=== PATIENT | male | born 1990 | race Caucasian/White ===

== ENCOUNTER 2018-03-23 12:44 | Inpatient (IN) | payer OTHER ==
[2018-03-23] MEDS: VANCOMYCIN PER PHARMACY MC ×2 (13:15→20:43)
[2018-03-23] MEDS: IV NORMAL SALINE 1000ML BAG 1,000 ML IV ×2 (13:15→14:47)
[2018-03-23] MEDS: PIPERACILLIN/TAZOBACTAM 3.375 GM in IV NORMAL SALINE 50ML 50 ML IV ×3 (13:15→23:28)
[2018-03-23 13:53] LABS: ADD MAN DIFF? NO
[2018-03-23 13:59] LABS: BASO % 0 % (0-3); EOS % 0 % (0-3); HEMATOCRIT 32.7 % (39.0-53.0); HEMOGLOBIN 11.3 g/dL (13.0-17.5); LYMPH # 1.7 x10^3/uL (1.0-4.8); LYMPH % 15 % (24-48); MEAN CORPUSCULAR HEMOGLOBIN 31 pg (25-35); MEAN CORPUSCULAR HGB CONC 35 g/dL (31-37); MEAN CORPUSCULAR VOLUME 89 fL (79-100); MONO # 0.9 x10^3/uL (0.0-1.1); MONO % 8 % (0-9); NEUT # 8.5 x10^3uL (1.8-7.7); NEUT % 76 % (31-73); PLATELET COUNT 502 x10^3/uL (140-400); RED BLOOD COUNT 3.69 x10^6/uL (4.30-5.70); WHITE BLOOD COUNT 11.2 x10^3/uL (4.0-11.0)
[2018-03-23 14:10] LABS: INR 1.2 (0.8-1.1); PARTIAL THROMBOPLASTIN TIME 42 SEC (24-38); PROTHROMBIN TIME PATIENT 14.8 SEC (11.7-14.0)
[2018-03-23 14:23] LABS: ANION GAP 8 (6-14); BLOOD UREA NITROGEN 9 mg/dL (8-26); BUN/CREATININE RATIO 11 (6-20); CARBON DIOXIDE 26 mmol/L (21-32); CHLORIDE 102 mmol/L (98-107); CREATININE 0.8 mg/dL (0.7-1.3); GLUCOSE 104 mg/dL (70-99); POTASSIUM 3.5 mmol/L (3.5-5.1); SODIUM 136 mmol/L (136-145)
[2018-03-23 14:29] LABS: ALBUMIN 2.4 g/dL (3.4-5.0); ALBUMIN/GLOBULIN RATIO 0.4 (1.0-1.7); ALK PHOS 88 U/L (46-116); ALT (SGPT) 27 U/L (16-63); AST (SGOT) 17 U/L (15-37); TOTAL BILIRUBIN 0.3 mg/dL (0.2-1.0); TOTAL PROTEIN 8.4 g/dL (6.4-8.2)
[2018-03-23 14:31] LABS: LACTIC ACID 1.2 mmol/L (0.4-2.0)
[2018-03-23 14:32] LABS: TROPONINI < 0.017 ng/mL (0.000-0.055)
[2018-03-23] MEDS ORDERED: ONDANSETRON PF 4 MG/2 ML VIAL. IV (15:00)
[2018-03-23] MEDS: VANCOMYCIN 2 GM in IV 1/2 NORMAL SALINE 500 ML IV (15:00)
[2018-03-23 17:58] LABS: LACTIC ACID 1.1 mmol/L (0.4-2.0)
[2018-03-23] MEDS: LACTOBACILLUS RHAMNOSUS GG 1 CAPSULE. PO (21:08)
[2018-03-23] MEDS: ACETAMINOPHEN 325 MG TABLET. PO (21:08)
[2018-03-24] MEDS: VANCOMYCIN 1.75 GM in IV 1/2 NORMAL SALINE 500 ML IV ×3 (00:16→15:32)
[2018-03-24] MEDS: IV NORMAL SALINE 1000ML BAG 1,000 ML IV ×2 (00:16→06:00)
[2018-03-24] MEDS: PIPERACILLIN/TAZOBACTAM 3.375 GM in IV NORMAL SALINE 50ML 50 ML IV ×4 (06:00→23:11)
[2018-03-24] MEDS: LACTOBACILLUS RHAMNOSUS GG 1 CAPSULE. PO ×2 (08:51→19:49)
[2018-03-24] MEDS ORDERED: LIDOCAINE WITH 8.4% SOD BICARB 3 ML DISP.SYRIN. (11:47)
[2018-03-24] MEDS ORDERED: fentaNYL PF VIAL 100 MCG/2 ML VIAL (11:54)
[2018-03-24] MEDS ORDERED: MIDAZOLAM HCL/PF 2 MG/2 ML VIAL. (11:54)
[2018-03-24] MEDS: MIDAZOLAM HCL/PF 2 MG/2 ML VIAL. IV (12:15)
[2018-03-24] MEDS: LIDOCAINE WITH 8.4% SOD BICARB 3 ML DISP.SYRIN. IJ (12:15)
[2018-03-24] MEDS: fentaNYL PF VIAL 100 MCG/2 ML VIAL IV (12:15)
[2018-03-24 14:19] LABS: PH,BODY FLUID 6.17
[2018-03-24] MEDS: MORPHINE SULFATE 2 MG/ML DISP.SYRIN. IV (14:36)
[2018-03-24] MEDS: HYDROcodone/APAP 5/325MG 1 TAB TABLET PO ×2 (15:33→19:49)
[2018-03-24] MEDS: VANCOMYCIN PER PHARMACY MC (16:36)
[2018-03-25] MEDS: VANCOMYCIN 1.5 GM in IV DEXTROSE 5% 500 ML IV ×3 (00:23→16:34)
[2018-03-25] MEDS: PIPERACILLIN/TAZOBACTAM 3.375 GM in IV NORMAL SALINE 50ML 50 ML IV ×4 (05:24→23:52)
[2018-03-25] MEDS: HYDROcodone/APAP 5/325MG 1 TAB TABLET PO ×5 (05:28→21:35)
[2018-03-25 08:07] LABS: ADD MAN DIFF? NO
[2018-03-25] MEDS: LACTOBACILLUS RHAMNOSUS GG 1 CAPSULE. PO ×2 (08:24→20:47)
[2018-03-25 08:32] LABS: ANION GAP 10 (6-14); BLOOD UREA NITROGEN 5 mg/dL (8-26); CALCIUM 9.1 mg/dL (8.5-10.1); CARBON DIOXIDE 26 mmol/L (21-32); CHLORIDE 104 mmol/L (98-107); CREATININE 0.8 mg/dL (0.7-1.3); GLUCOSE 95 mg/dL (70-99); POTASSIUM 3.8 mmol/L (3.5-5.1); SODIUM 140 mmol/L (136-145)
[2018-03-25 08:36] LABS: BASO % 1 % (0-3); EOS # 0.1 x10^3/uL (0.0-0.7); EOS % 1 % (0-3); HEMATOCRIT 31.5 % (39.0-53.0); HEMOGLOBIN 10.9 g/dL (13.0-17.5); LYMPH # 1.2 x10^3/uL (1.0-4.8); LYMPH % 18 % (24-48); MEAN CORPUSCULAR HEMOGLOBIN 31 pg (25-35); MEAN CORPUSCULAR HGB CONC 35 g/dL (31-37); MEAN CORPUSCULAR VOLUME 89 fL (79-100); MONO # 0.7 x10^3/uL (0.0-1.1); MONO % 10 % (0-9); NEUT # 4.8 x10^3uL (1.8-7.7); NEUT % 71 % (31-73); PLATELET COUNT 482 x10^3/uL (140-400); RED BLOOD COUNT 3.55 x10^6/uL (4.30-5.70); WHITE BLOOD COUNT 6.8 x10^3/uL (4.0-11.0)
[2018-03-25] MEDS: GADOBUTROL 7.5 MMOL/7.5 ML VIAL IV ×2 (10:27)
[2018-03-25] MEDS: VANCOMYCIN PER PHARMACY MC (15:04)
[2018-03-25 23:35] LABS: VANC TR 21.9 mcg/mL (10.0-20.0)
[2018-03-26] MEDS: VANCOMYCIN 1.5 GM in IV DEXTROSE 5% 500 ML IV (00:53)
[2018-03-26] MEDS: VANCOMYCIN PER PHARMACY MC ×2 (01:49→14:16)
[2018-03-26] MEDS: PIPERACILLIN/TAZOBACTAM 3.375 GM in IV NORMAL SALINE 50ML 50 ML IV ×4 (05:30→23:35)
[2018-03-26] MEDS: HYDROcodone/APAP 5/325MG 1 TAB TABLET PO ×4 (07:35→21:08)
[2018-03-26] MEDS: LACTOBACILLUS RHAMNOSUS GG 1 CAPSULE. PO ×2 (08:08→21:08)
[2018-03-26] MEDS: VANCOMYCIN 1.25 GM in IV NORMAL SALINE 250ML 250 ML IV ×2 (08:11→15:56)
[2018-03-26] MEDS: ALTEPLASE 2MG VIAL 10 MG in IV NORMAL SALINE 50ML 50 ML INT CAT (10:06)
[2018-03-26 15:31] LABS: BODY FLUID LDH 748000 IU/L (.)
[2018-03-26 15:31] LABS: BODY FLUID GLUCOSE <2 mg/dL (.)
[2018-03-27] MEDS: VANCOMYCIN 1.25 GM in IV NORMAL SALINE 250ML 250 ML IV ×2 (00:10→08:00)
[2018-03-27] MEDS: PIPERACILLIN/TAZOBACTAM 3.375 GM in IV NORMAL SALINE 50ML 50 ML IV ×3 (06:08→17:48)
[2018-03-27 07:47] LABS: ADD MAN DIFF? NO
[2018-03-27 07:55] LABS: BASO % 1 % (0-3); EOS % 1 % (0-3); HEMOGLOBIN 11.4 g/dL (13.0-17.5); LYMPH # 1.4 x10^3/uL (1.0-4.8); LYMPH % 17 % (24-48); MEAN CORPUSCULAR HEMOGLOBIN 30 pg (25-35); MEAN CORPUSCULAR HGB CONC 35 g/dL (31-37); MEAN CORPUSCULAR VOLUME 88 fL (79-100); MONO # 0.8 x10^3/uL (0.0-1.1); MONO % 11 % (0-9); NEUT # 5.8 x10^3uL (1.8-7.7); NEUT % 71 % (31-73); PLATELET COUNT 571 x10^3/uL (140-400); RED BLOOD COUNT 3.76 x10^6/uL (4.30-5.70); RED CELL DISTRIBUTION WIDTH 12.7 % (11.5-14.5); WHITE BLOOD COUNT 8.1 x10^3/uL (4.0-11.0)
[2018-03-27 07:56] LABS: ANION GAP 10 (6-14); BLOOD UREA NITROGEN 6 mg/dL (8-26); CALCIUM 9.2 mg/dL (8.5-10.1); CARBON DIOXIDE 28 mmol/L (21-32); CHLORIDE 102 mmol/L (98-107); CREATININE 1.2 mg/dL (0.7-1.3); GFR 72.6; GLUCOSE 101 mg/dL (70-99); POTASSIUM 4.1 mmol/L (3.5-5.1); SODIUM 140 mmol/L (136-145)
[2018-03-27 08:02] LABS: VANC TR 21.4 mcg/mL (10.0-20.0)
[2018-03-27] MEDS: LACTOBACILLUS RHAMNOSUS GG 1 CAPSULE. PO ×2 (08:16→21:38)
[2018-03-27] MEDS: HYDROcodone/APAP 5/325MG 1 TAB TABLET PO ×4 (08:22→21:39)
[2018-03-27] MEDS: IV NORMAL SALINE 1000ML BAG 1,000 ML IV (08:23)
[2018-03-27] MEDS: VANCOMYCIN PER PHARMACY MC ×2 (09:00→11:32)
[2018-03-27] MEDS: VANCOMYCIN 1.5 GM in IV 1/2 NORMAL SALINE 500 ML IV (10:46)
[2018-03-27] MEDS: ALTEPLASE 2MG VIAL 10 MG in IV NORMAL SALINE 50ML 50 ML INT CAT (11:30)
[2018-03-28] MEDS: PIPERACILLIN/TAZOBACTAM 3.375 GM in IV NORMAL SALINE 50ML 50 ML IV ×5 (00:33→23:59)
[2018-03-28 06:46] LABS: ANION GAP 9 (6-14); BLOOD UREA NITROGEN 6 mg/dL (8-26); CALCIUM 9.3 mg/dL (8.5-10.1); CARBON DIOXIDE 27 mmol/L (21-32); CHLORIDE 103 mmol/L (98-107); CREATININE 1.2 mg/dL (0.7-1.3); GFR 72.6; GLUCOSE 103 mg/dL (70-99); POTASSIUM 3.9 mmol/L (3.5-5.1); SODIUM 139 mmol/L (136-145)
[2018-03-28] MEDS: LACTOBACILLUS RHAMNOSUS GG 1 CAPSULE. PO ×2 (08:13→20:03)
[2018-03-28] MEDS: HYDROcodone/APAP 5/325MG 1 TAB TABLET PO ×5 (08:13→22:00)
[2018-03-28 23:07] LABS: VANC TR 3.4 mcg/mL (10.0-20.0)
[2018-03-29] MEDS: PIPERACILLIN/TAZOBACTAM 3.375 GM in IV NORMAL SALINE 50ML 50 ML IV ×3 (05:14→17:39)
[2018-03-29 05:30] LABS: ANION GAP 11 (6-14); BLOOD UREA NITROGEN 7 mg/dL (8-26); CALCIUM 8.8 mg/dL (8.5-10.1); CARBON DIOXIDE 27 mmol/L (21-32); CHLORIDE 101 mmol/L (98-107); CREATININE 1.2 mg/dL (0.7-1.3); GFR 72.6; GLUCOSE 90 mg/dL (70-99); POTASSIUM 4.1 mmol/L (3.5-5.1); SODIUM 139 mmol/L (136-145)
[2018-03-29] MEDS: HYDROcodone/APAP 5/325MG 1 TAB TABLET PO ×2 (10:29→17:41)
[2018-03-29] MEDS: LACTOBACILLUS RHAMNOSUS GG 1 CAPSULE. PO ×2 (10:29→21:12)
[2018-03-30] MEDS: PIPERACILLIN/TAZOBACTAM 3.375 GM in IV NORMAL SALINE 50ML 50 ML IV ×3 (00:06→12:26)
[2018-03-30] MEDS: HYDROcodone/APAP 5/325MG 1 TAB TABLET PO (06:02)
[2018-03-30 06:44] LABS: ANION GAP 9 (6-14); BLOOD UREA NITROGEN 8 mg/dL (8-26); CALCIUM 9.3 mg/dL (8.5-10.1); CARBON DIOXIDE 28 mmol/L (21-32); CHLORIDE 101 mmol/L (98-107); CREATININE 1.2 mg/dL (0.7-1.3); GFR 72.6; GLUCOSE 94 mg/dL (70-99); POTASSIUM 3.9 mmol/L (3.5-5.1); SODIUM 138 mmol/L (136-145)
[2018-03-30] MEDS: LACTOBACILLUS RHAMNOSUS GG 1 CAPSULE. PO (10:34)
== END 2018-03-30 13:00 | disposition home or self-care (01) | DRG 539 ==
LOC: 6 SOUTH 03-28 16:00 → ER 12:44 → 4 NORTH 14:50
PROC: 3E0L3GC Introduction of Other Therapeutic Substance into Pleural Cavity, Percutaneous Approach (ICD-10-PCS; principal; 2018-03-23)
PROC: 0W9B30Z Drainage of Left Pleural Cavity with Drainage Device, Percutaneous Approach (ICD-10-PCS; 2018-03-25)
PROC: 02HV33Z Insertion of Infusion Device into Superior Vena Cava, Percutaneous Approach (ICD-10-PCS; 2018-03-26)
DX: M46.20 Osteomyelitis of vertebra, site unspecified (principal); J85.2 Abscess of lung without pneumonia; N17.9 Acute kidney failure, unspecified; M46.40 Discitis, unspecified, site unspecified; I10 Essential (primary) hypertension; M46.90 Unspecified inflammatory spondylopathy, site unspecified; B95.61 Methicillin susceptible Staphylococcus aureus infection as the cause of diseases classified elsewhere; Z82.49 Family history of ischemic heart disease and other diseases of the circulatory system; Z83.3 Family history of diabetes mellitus
CPT/HCPCS: 32557; 36415; 36569; 71045; 71250; 72157; 80048; 80053; 80202; 82945; 83605; 83615; 83986; 84157; 84484; 85025; 85610; 85730; 87040; 87071; 87075; 87186; 88112; 96365; 96366; 96367; 96368; 99152; 99153; 99285; 99285-25; A4215; A9585; C1729; C1892; J1956; J2250; J2270; J2543; J2997; J3010; J3370; J7030; J7050

== ENCOUNTER → 2018-03-23 | Outpatient (CLI) | payer OTHER ==
[~2018-03-23] MED LIST: MIDAZOLAM HCL/PF 2 MG/2 ML VIAL.
[2018-03-23] MEDS: IOHEXOL 300 MG/ML 100ML VIAL. IV (11:54)
== END | disposition home or self-care (01) ==
LOC: CT 11:27
DX: R59.1 Generalized enlarged lymph nodes (principal); I10 Essential (primary) hypertension
CPT/HCPCS: 71275; J2250; Q9967

== ENCOUNTER → 2018-04-24 | Outpatient (CLI) | payer OTHER ==
[2018-04-23 15:10] VITALS: BP 169/91
[~2018-04-24] MED LIST changes: +HYDR-2758 PO; -MIDAZOLAM HCL/PF 2 MG/2 ML VIAL.; +cefTRIAXone SODIUM 2 GM in IV DEXTROSE 5% 100ML 100 ML IV SCH
--- NOTE | 2018-04-24 15:26 | RAD ---
Examination: CT chest without contrast HISTORY: History of empyema COMPARISON: 04/03/2018 technique: Axial CT images of the chest were performed without contrast. Coronal and sagittal reformats are performed Exposure: One or more of the following individualized dose reduction techniques were utilized for this examination: 1. Automated exposure control 2. Adjustment of the mA and/or kV according to patient size 3. Use of iterative reconstruction technique FINDINGS: Right-sided PICC line is identified the tip projecting in the distal SVC. The heart size grossly appears unremarkable The caliber of the aorta grossly appears unremarkable There is a loculated pleural effusion or empyema identified in the left lung measuring 10.92 cm in CC dimension, 6.5 cm in transverse dimension and 4.6 cm in AP dimension. The previously visualized pleural drain has been removed. The anterior paraspinal component at T8-T9 level appears slightly less prominent compared to prior exam. Irregularity of the inferior endplate of T9 vertebral body is again identified. Examination limited due to lack of IV contrast. Mild left lung base airspace opacities likely atelectasis or infiltrate. There is a 8 mm nodule identified in the left lower lobe of the lung is similar to prior exam. The visualized noncontrasted liver, spleen, adrenals grossly appears unremarkable IMPRESSION: 1. Loculated pleural effusion or empyema in the left lung identified as described above. The anterior paraspinal component of the fluid collection appears slightly less prominent. Irregularity of the inferior endplate of T9 vertebral body again noted. Electronically signed by: Jr Lackey MD (04/24/2018 3:23 PM) [id number]
== END | disposition home or self-care (01) ==
LOC: CT 15:39
PROVIDERS: ATTEND Internal Medicine Critical Care Medicine
DX: J43.9 Emphysema, unspecified (principal); R91.1 Solitary pulmonary nodule; I10 Essential (primary) hypertension
CPT/HCPCS: 71250

== ENCOUNTER → 2018-05-08 | Outpatient (CLI) | payer OTHER ==
[2018-05-08] VITALS (10 sets, daily range): BP systolic 105–144; BP diastolic 68–93
[~2018-05-08] VITALS: Ht 180.3 cm; Wt 120.7 kg
[~2018-05-08] MED LIST changes: +LIDOCAINE WITH 8.4% SOD BICARB 3 ML DISP.SYRIN. ONE; +MIDAZOLAM HCL/PF 2 MG/2 ML VIAL. ONE; +fentaNYL PF VIAL 100 MCG/2 ML VIAL ONE
[2018-05-08 07:32] LABS: BASO % 1 % (0-3); EOS # 0.2 x10^3/uL (0.0-0.7); EOS % 3 % (0-3); HEMATOCRIT 39.1 % (39.0-53.0); HEMOGLOBIN 13.5 g/dL (13.0-17.5); LYMPH # 2.4 x10^3/uL (1.0-4.8); LYMPH % 40 % (24-48); MEAN CORPUSCULAR HEMOGLOBIN 30 pg (25-35); MEAN CORPUSCULAR HGB CONC 35 g/dL (31-37); MEAN CORPUSCULAR VOLUME 86 fL (79-100); MONO # 0.5 x10^3/uL (0.0-1.1); MONO % 8 % (0-9); NEUT # 2.9 x10^3uL (1.8-7.7); NEUT % 48 % (31-73); PLATELET COUNT 297 x10^3/uL (140-400); RED BLOOD COUNT 4.55 x10^6/uL (4.30-5.70); RED CELL DISTRIBUTION WIDTH 15.2 % (11.5-14.5); WHITE BLOOD COUNT 5.9 x10^3/uL (4.0-11.0)
[2018-05-08 07:47] LABS: PROTHROMBIN TIME PATIENT 12.4 SEC (11.7-14.0)
[2018-05-08] MEDS: MIDAZOLAM HCL/PF 2 MG/2 ML VIAL. IV ONE (09:40)
[2018-05-08] MEDS: fentaNYL PF VIAL 100 MCG/2 ML VIAL IV ONE (09:40)
[2018-05-08] MEDS: LIDOCAINE WITH 8.4% SOD BICARB 3 ML DISP.SYRIN. IJ ONE (09:40)
--- NOTE | 2018-05-08 13:43 | RAD ---
CT-guided aspiration, left loculated pleural fluid collection. 05/08/2018 Indication: History of empyema. Residual loculated left pleural fluid collection. Control Room Operator requests aspiration with culture and Gram stain. Discussion: The risks and benefits of the procedure were discussed the patient. Informed consent was obtained. The patient was placed in the CT scanner in the prone position. A timeout procedure was performed. Left posterior thorax was prepped and draped using sterile barrier technique. CT imaging was obtained redemonstrating left posterior lateral loculated ovoid fluid collection. This was targeted for aspiration. 1% lidocaine was administered for local anesthesia. Under intermittent CT guidance a 5 [place] Yueh needle was advanced into this collection. Approximately 100 cc of turbid aspirate was obtained. Samples were sent for Gram stain and culture per ordering physician request. The sheath was removed. No immediate complications were identified. The patient tolerated the procedure well. Impression: CT-guided aspiration, left pleural fluid collection PQRS Compliance Statement: One or more of the following individualized dose reduction techniques were utilized for this examination: 1. Automated exposure control 2. Adjustment of the mA and/or kV according to patient size 3. Use of iterative reconstruction technique
--- NOTE | 2018-05-08 13:56 | RAD ---
Single view of the chest. 05/08/2018 10:46 AM Indication: POST LT SIDE THORACENTESIS Comparison: Chest radiograph March 29, 2018 CT chest April 24, 2018 Findings: No pneumothorax is identified. Left-sided volume loss and pleural thickening is again seen. Left lateral pleural thickening is improved following aspiration of pleural fluid collection. Right upper extremity PICC line is stable. Heart size is normal. No acute osseous changes are noted in the interim. IMPRESSION: Decreased left pleural thickening following aspiration of left pleural fluid collection. No pneumothorax or other complication is identified. Electronically signed by: James Toscano MD (05/08/2018 1:52 PM) [facility] [id number]
[2018-05-09] MEDS: cefTRIAXone IV Push 2 GM VIAL. IVP ONE (07:33)
[2018-05-09 07:36] VITALS: BP 112/93
[2018-05-10 07:36] VITALS: BP 135/81
[2018-05-10] MEDS: cefTRIAXone IV Push 2 GM VIAL. IVP ONE (07:36)
== END | disposition home or self-care (01) ==
LOC: INTRAD 06:33
PROVIDERS: ATTEND Internal Medicine Critical Care Medicine
DX: J90 Pleural effusion, not elsewhere classified (principal); J43.9 Emphysema, unspecified; Z90.49 Acquired absence of other specified parts of digestive tract; Z98.890 Other specified postprocedural states; Z79.899 Other long term (current) drug therapy; I10 Essential (primary) hypertension; Z83.3 Family history of diabetes mellitus; Z82.49 Family history of ischemic heart disease and other diseases of the circulatory system; Z86.14 Personal history of Methicillin resistant Staphylococcus aureus infection
CPT/HCPCS: 32555; 36415; 71045; 83986; 85025; 85610; 87071; 87075; 99152; C1892; J2250; J3010; 82945; 83615; 84157; J0696

== ENCOUNTER → 2018-07-07 | Outpatient (CLI) | payer OTHER ==
[2018-05-19 14:19] VITALS: BP 142/82
[~2018-07-07] MED LIST changes: -LIDOCAINE WITH 8.4% SOD BICARB 3 ML DISP.SYRIN. ONE; -MIDAZOLAM HCL/PF 2 MG/2 ML VIAL. ONE; -cefTRIAXone SODIUM 2 GM in IV DEXTROSE 5% 100ML 100 ML IV SCH; -fentaNYL PF VIAL 100 MCG/2 ML VIAL ONE
--- NOTE | 2018-07-07 13:26 | RAD ---
Chest, 2 views, 07/07/2018: HISTORY: Lung nodules Comparison is made to a study from February 05, 2018. The heart size and pulmonary vascularity are normal. There is a hazy peripheral pleural opacity in the left lateral chest which appears to have improved. A previous CT study showed that this was due to loculated pleural fluid. No pulmonary mass or infiltrate is seen. There is no evidence of pleural fluid. IMPRESSION: 1. Left lateral pleural thickening appears to have improved. 2. No new abnormality is detected. Electronically signed by: Roel Schroeder MD (07/07/2018 1:24 PM) [facility]
== END | disposition home or self-care (01) ==
LOC: RAD 09:22
PROVIDERS: ATTEND Internal Medicine Critical Care Medicine
DX: R91.8 Other nonspecific abnormal finding of lung field (principal)
CPT/HCPCS: 71046